=== PATIENT | female | born 1940 | race Caucasian/White ===

== ENCOUNTER 2025-01-30 15:45 | Emergency (ER) | payer MEDICARE, OTHER, SELFPAY ==
[2025-01-30] VITALS (24 sets, daily range): BP systolic 85–148; BP diastolic 53–67; PULSE 60–79; RESP 16–18; TEMP 36.9; O2SAT 93–99; BMI 25.6
--- NOTE | 2025-01-30 16:03 | DI.RAD.S_ITS ---
PROCEDURE: XR TIBIA FUBULA RT 2V INDICATIONS: twisted right knee lower leg; unable to walk TECHNIQUE: 2 views of the tibia and fibula were acquired. COMPARISON: None. FINDINGS: Bones: Comminuted and depressed lateral tibial plateau fracture is seen. No mid to distal tibial fracture. No fibular fracture. No suspicious bony lesions. Soft tissues: No suspicious soft tissue calcifications or masses. IMPRESSION: Acute comminuted and depressed lateral tibial plateau fracture. No mid to distal lower leg fracture or dislocation. Dictated by: Gaston Quintero M.D. on 01/30/2025 at 16:46 Approved by: Gaston Quintero M.D. on 01/30/2025 at 16:47
--- NOTE | 2025-01-30 16:03 | DI.RAD.S_ITS ---
PROCEDURE: XR KNEE RT 1TO2V INDICATIONS: twisted right knee lower leg; unable to walk TECHNIQUE: 2 views of the knee were acquired. COMPARISON: None. FINDINGS: Bones: Acute comminuted and depressed fracture involving lateral tibial plateau is seen. No other fracture or dislocation.. No suspicious bony lesions. Soft tissues: Moderate to large joint effusion. No suspicious soft tissue calcifications. IMPRESSION: Acute comminuted and depressed lateral tibial plateau fracture with moderate to large joint effusion. Dictated by: Gaston Quintero M.D. on 01/30/2025 at 16:45 Approved by: Gaston Quintero M.D. on 01/30/2025 at 16:46
--- NOTE | 2025-01-30 18:56 | ED_ITS ---
HPI - Extremity Injury (Lower) General Chief Complaint: Extremity Injury, Lower Stated Complaint: Mechanical GLF Time Seen by Provider: 01/30/25 18:56 Source: patient and EMS Mode of arrival: EMS History of Present Illness HPI Narrative: 84-year-old female past medical history of chronic indwelling Lundy catheter, hypertension, hyperlipidemia presenting via EMS for evaluation of right knee/leg pain. Patient states that [place] and had a mechanical trip and fall, states that her leg got stuck between 2 logs and twisted it. Had immediate pain unable to bear weight on the leg, however on exam neurovascularly intact. She is not on any blood thinners denies any other injuries or trauma. Related Data Allergies Allergy/AdvReac Type Severity Reaction Status Date / Time acetaminophen [From Vicodin] Allergy Verified 01/30/25 15:59 azithromycin [From Zithromax] Allergy Verified 01/30/25 15:59 hydrocodone [From Vicodin] Allergy Verified 01/30/25 15:59 sulfamethoxazole Allergy Verified 01/30/25 15:59 [From Bactrim] trimethoprim [From Bactrim] Allergy Verified 01/30/25 15:59 Review of Systems Review of Systems Narrative: General: Denies fever, chills, weight loss HEENT: Denies headache, eye drainage, eye irritation, head trauma, sore throat, voice change Cardiovascular: Denies any chest pain, palpitations, tachycardia Respiratory: Denies any shortness of breath, cough, wheeze, stridor GI/: Denies any abdominal pain, nausea, vomiting, diarrhea, bright red blood per rectum, melanotic stools, urinary frequency, urinary retention, dysuria, hematuria MSK: Positive right leg/knee pain Skin: Denies any rashes, lesions, discoloration Neuro: Denies any headache, lightheadedness, dizziness, fainting, weakness Psych: Denies SI/HI Patient History Social History Smoking Status: Never smoker Smoking Status: Never smoker Exam Narrative Exam Narrative: General: Cooperative, well-developed, not in acute distress HEENT: Normocephalic, atraumatic, PERRLA, normal sclera, eyelids normal Neck: Active full range of motion, atraumatic Chest: Normal to inspection, negative crepitus, no overlying erythema ecchymosis Respiratory: Normal respiratory effort, not in acute respiratory distress, clear to auscultation bilaterally negative cough, wheeze, tachypnea, rhonchi, rales Cardiology: Regular rate rhythm negative gallop, murmur, rubs GI/: No tenderness to palpation, soft, non rigid, normal to inspection, exam deferred MSK: Right knee in splint, neurovascularly intact tenderness to palpation of the right anterior knee Skin: No rashes or lesions noted Neuro: Alert awake oriented x3, moves all 4 extremities spontaneously, cranial nerves intact, able to answer all questions appropriately follows commands appropriately Psych: Cooperative, negative suicidal or homicidal ideations Initial Vital Signs Initial Vital Signs: Vital Signs Temperature 98.5 F 01/30/25 15:59 Pulse Rate 70 01/30/25 15:59 Respiratory Rate 16 01/30/25 15:59 Blood Pressure 143/65 H 01/30/25 15:59 Pulse Oximetry 98 01/30/25 15:59 Oxygen Delivery Method Room Air 01/30/25 15:59 Course Orders Ordered: ED Orders 01/30/25 16:03 XR knee RT 1to2V Stat XR tibia fibula RT 2V Stat 01/30/25 20:04 CBC Auto Diff [Complete Blood Count AUTO DIFF] Stat CMP [Comprehensive Metabolic Panel] Stat Discontinued Medications Morphine Sulfate (Morphine 4 Mg/Ml Inj) 2 mg IV NOW ONE Stop: 01/30/25 19:30 Last Admin: 01/30/25 19:38 Dose: 2 mg Documented By: ABDULAZIZ Morphine Sulfate (Morphine 4 Mg/Ml Inj) 2 mg IV NOW ONE Stop: 01/30/25 22:27 Last Admin: 01/30/25 22:47 Dose: 2 mg Documented By: ABDULAZIZ Ondansetron HCl (Ondansetron 4 Mg/2 Ml Inj) 4 mg IV NOW ONE Stop: 01/30/25 19:30 Last Admin: 01/30/25 19:38 Dose: 4 mg Documented By: ABDULAZIZ Vital Signs Vital signs: Vital Signs - 8 hr 01/30/25 15:59 01/30/25 16:36 01/30/25 16:39 Temperature 98.5 F Pulse Rate 70 Pulse Rate [Bilateral Dorsalis Pedis] 70 Respiratory Rate 16 Blood Pressure 143/65 H 148/66 H Pulse Oximetry 98 Oxygen Delivery Method Room Air 01/30/25 16:51 01/30/25 16:51 01/30/25 17:00 Temperature Pulse Rate 64 62 Pulse Rate [Bilateral Dorsalis Pedis] Respiratory Rate Blood Pressure 134/64 Pulse Oximetry 96 99 Oxygen Delivery Method 01/30/25 17:00 01/30/25 17:30 01/30/25 17:30 Temperature Pulse Rate 63 Pulse Rate [Bilateral Dorsalis Pedis] Respiratory Rate Blood Pressure 133/62 130/58 L Pulse Oximetry 98 Oxygen Delivery Method 01/30/25 18:00 01/30/25 18:01 01/30/25 18:01 Temperature Pulse Rate 75 67 Pulse Rate [Bilateral Dorsalis Pedis] Respiratory Rate Blood Pressure 143/59 H Pulse Oximetry 97 98 Oxygen Delivery Method 01/30/25 18:30 01/30/25 18:30 01/30/25 19:00 Temperature Pulse Rate 79 69 Pulse Rate [Bilateral Dorsalis Pedis] Respiratory Rate Blood Pressure 132/61 Pulse Oximetry 97 97 Oxygen Delivery Method 01/30/25 19:01 01/30/25 19:01 01/30/25 19:30 Temperature Pulse Rate 66 67 Pulse Rate [Bilateral Dorsalis Pedis] Respiratory Rate Blood Pressure 122/62 Pulse Oximetry 98 97 Oxygen Delivery Method Room Air 01/30/25 19:31 01/30/25 19:31 01/30/25 19:38 Temperature Pulse Rate 69 Pulse Rate [Bilateral Dorsalis Pedis] 66 Respiratory Rate Blood Pressure 134/58 L Pulse Oximetry 97 Oxygen Delivery Method 01/30/25 20:00 01/30/25 20:08 01/30/25 20:08 Temperature Pulse Rate 66 65 Pulse Rate [Bilateral Dorsalis Pedis] Respiratory Rate Blood Pressure 85/54 L Pulse Oximetry 96 96 Oxygen Delivery Method Room Air 01/30/25 20:10 01/30/25 20:10 01/30/25 20:30 Temperature Pulse Rate 67 64 Pulse Rate [Bilateral Dorsalis Pedis] Respiratory Rate Blood Pressure 130/60 Pulse Oximetry 96 96 Oxygen Delivery Method 01/30/25 20:30 01/30/25 21:00 01/30/25 21:01 Temperature Pulse Rate 60 Pulse Rate [Bilateral Dorsalis Pedis] Respiratory Rate Blood Pressure 132/59 L 118/67 Pulse Oximetry 96 Oxygen Delivery Method 01/30/25 21:01 01/30/25 21:30 01/30/25 21:30 Temperature Pulse Rate 70 66 Pulse Rate [Bilateral Dorsalis Pedis] Respiratory Rate Blood Pressure 124/59 L Pulse Oximetry 93 95 Oxygen Delivery Method Room Air 01/30/25 22:00 01/30/25 22:01 01/30/25 22:01 Temperature Pulse Rate 62 60 Pulse Rate [Bilateral Dorsalis Pedis] Respiratory Rate Blood Pressure 117/53 L Pulse Oximetry 96 96 Oxygen Delivery Method Room Air MDM - Extremity Injury (Lower) Differential Diagnosis Differential diagnosis: Likely other (Sprain, fracture,) Lab Data 01/30/25 20:04 01/30/25 20:04 Labs: Lab Results 01/30/25 Range/Units 20:04 WBC 14.0 H (4.5-11.0) X10^3/uL RBC 4.54 (4.0-5.2) X10^6/uL Hgb 15.0 (12.0-16.0) g/dL Hct 43.8 (36-46) % MCV 96.6 (80-100) fL MCH 33.1 (26-34) PG MCHC 34.3 (30-36) % RDW 13.1 (11.6-14.8) % Plt Count 254 (150-400) X10^3/uL Neut % (Auto) 84.0 H (50-75) % Lymph % (Auto) 7.5 L (25-40) % [place] % (Auto) 8.1 (3-14) % Eos % (Auto) 0.0 L (2-4) % Baso % (Auto) 0.4 (0-2) % Neut # (Auto) 69998 H (4179-5781) /uL Lymph # (Auto) 1100 (7741-0988) /uL [place] # (Auto) 1100 H (0-900) /uL Eos # (Auto) 0 (0-450) /uL Baso # (Auto) 100 (0-100) /uL Sodium 137 (137-145) mmol/L Potassium 3.7 (3.4-5.1) mmol/L Chloride 104 (98-107) mmol/L Carbon Dioxide 21 L (22-32) mmol/L BUN 30 H (7-17) mg/dL Creatinine 1.12 H (0.52-1.04) mg/dL Estimated GFR 49 L (>60) mL/min BUN/Creatinine Ratio 26.8 H (6-22) Glucose 107 (80-110) mg/dL Calcium 9.8 (8.4-10.2) mg/dL Total Bilirubin 1.1 (0.2-1.3) mg/dL AST 38 H (14-36) IU/L ALT 27 (<35) IU/L Alkaline Phosphatase 97 (38-126) U/L Total Protein 7.8 (6.3-8.2) g/dL Albumin 4.7 (3.5-5.0) g/dL Globulin 3.1 (1.7-4.1) g/dL Albumin/Globulin Ratio 1.5 (1.0-2.8) Imaging Data Extremity x-ray #1: Radiologist's Impression: [address] [address] XRay Report Signed Patient: Leeann Rice MR#: [id number] : 1940 Acct:[id number] Age/Sex: 84 / F Date of Service: 01/30/25 Loc: ED Accession Number: [id number] Procedure: XR tibia fibula RT 2V Ordering Provider: Flory Pinto D.O. PROCEDURE: XR TIBIA FUBULA RT 2V INDICATIONS: twisted right knee lower leg; unable to walk TECHNIQUE: 2 views of the tibia and fibula were acquired. COMPARISON: None. FINDINGS: Bones: Comminuted and depressed lateral tibial plateau fracture is seen. No mid to distal tibial fracture. No fibular fracture. No suspicious bony lesions. Soft tissues: No suspicious soft tissue calcifications or masses. IMPRESSION: Acute comminuted and depressed lateral tibial plateau fracture. No mid to distal lower leg fracture or dislocation. Extremity x-ray #2: Radiologist's Impression: [address] [address] XRay Report Signed Patient: Leeann Rice MR#: [id number] : 1940 Acct:[id number] Age/Sex: 84 / F Date of Service: 01/30/25 Loc: ED Accession Number: [id number] Procedure: XR knee RT 1to2V Ordering Provider: Flory Pinto D.O. PROCEDURE: XR KNEE RT 1TO2V INDICATIONS: twisted right knee lower leg; unable to walk TECHNIQUE: 2 views of the knee were acquired. COMPARISON: None. FINDINGS: Bones: Acute comminuted and depressed fracture involving lateral tibial plateau is seen. No other fracture or dislocation.. No suspicious bony lesions. Soft tissues: Moderate to large joint effusion. No suspicious soft tissue calcifications. IMPRESSION: Acute comminuted and depressed lateral tibial plateau fracture with moderate to large joint effusion. MDM Narrative Medical decision making narrative: 84-year-old female history of chronic indwelling Lundy, hypertension hyperlipidemia presents via EMS for evaluation of right knee pain, she said earlier today [place] trail her right foot got stuck in between 2 logs, she states that she twisted it and fell on it, states she had immediate pain. She presents with it in a splint, she is neurovascularly intact, Dr. Blas of Orthopedic surgery was consulted given x-ray showing tibial plateau fracture, he is not recommending any additional images at this time but is recommending possible transfer given tibial plateau fracture. 2020: Discussed case with Dr. Wolff at [facility], agrees with transfer for tibial plateau fracture. He will be sent to [facility]. 2250: Transport here at bedside, patient re-evaluated hemodynamically stable safe for transfer to [facility] Discharge Plan Departure Patient Disposition: [facility] Clinical Impression: Closed fracture of tibial plateau
[2025-01-30] MEDS: ONDANSETRON 4 MG/2 ML INJ IV (19:38)
[2025-01-30] MEDS: MORPHINE 4 MG/ML INJ 2 MG IV ×2 (19:38→22:47)
[2025-01-30 20:20] LABS: Add Manual Diff / Slide Review NO; Basophils Absolute Auto 100 /uL (0-100); Basophils Percent Auto 0.4 % (0-2); Eosinophils Absolute Auto 0 /uL (0-450); Hematocrit 43.8 % (36-46); Lymphocytes Absolute Auto 1100 /uL (1100-4500); Lymphocytes Percent Auto 7.5 % (25-40); Mean Corpuscular HGB Conc 34.3 % (30-36); Mean Corpuscular Hemoglobin 33.1 PG (26-34); Mean Corpuscular Volume 96.6 fL (80-100); Monocytes Absolute Auto 1100 /uL (0-900); Monocytes Percent Auto 8.1 % (3-14); Neutrophils Absolute Auto 11700 /uL (1500-7000); Platelet Count 254 X10^3/uL (150-400); Red Blood Cell Count 4.54 X10^6/uL (4.0-5.2); Red Cell Distribution Width 13.1 % (11.6-14.8)
[2025-01-30 20:24] LABS: Alanine Aminotransferase 27 IU/L (<35); Albumin 4.7 g/dL (3.5-5.0); Albumin Globulin Ratio 1.5 (1.0-2.8); Alkaline Phosphatase 97 U/L (38-126); Aspartate Aminotransferase 38 IU/L (14-36); BUN Creatinine Ratio 26.8 (6-22); Bilirubin Total 1.1 mg/dL (0.2-1.3); Blood Urea Nitrogen 30 mg/dL (7-17); Calcium 9.8 mg/dL (8.4-10.2); Carbon Dioxide 21 mmol/L (22-32); Chloride 104 mmol/L (98-107); Estimated Glomerular Filt Rate 49 mL/min (>60); Globulin 3.1 g/dL (1.7-4.1); Glucose 107 mg/dL (80-110); HEMOLYSIS < 15 (0-50); Potassium 3.7 mmol/L (3.4-5.1); Sodium 137 mmol/L (137-145); Total Protein 7.8 g/dL (6.3-8.2)
--- NOTE | 2025-01-30 22:57 | PC.NURSE ---
Report given to Thao FOSTER [facility] transport.
== END 2025-01-30 22:58 | disposition short-term general hospital (02) ==
PROVIDERS: Emergency Provider Student in an Organized Health Care Education/Training Program
DX: S82.141A Displaced bicondylar fracture of right tibia, initial encounter for closed fracture (principal); W01.0XXA Fall on same level from slipping, tripping and stumbling without subsequent striking against object, initial encounter
CPT/HCPCS: 36415; 73560; 73590; 80053; 85025; 96374; 96375; 96376; 99284; J2270; J2405